=== PATIENT | female | born 1940 | race Caucasian/White ===

== ENCOUNTER 2019-08-29 09:26 | Inpatient (IN) | payer MEDICARE ==
[~2019-08-29] VITALS: Ht 167.6 cm; Wt 59.0 kg
[~2019-08-29 09:26] MED LIST: ALLOPURINOL 10100 M1 PO; ASPIRIN EC81 M1 PO; CALCIUM CARBON600 MG PO; CALCIUM500 MG PO; COLACE100 MG PO; CRESTOR20 MG PO; GLUCOPHAGE500 MG PO; HYDRALAZINE 5050 MG PO; LISINOPRIL20 MG PO; LOPRESSOR100 MG PO; MIRALAX17 GM PO; NORVASC5 MG PO; POTASSIUM CHLO10 ME1 PO; PRAVACHOL40 MG PO; SENNA8.6 MG PO; TOPROL XL25 MG PO
[2019-08-29 11:40] VITALS: BP 152/67
[2019-08-29 12:02] LABS: HEMATOCRIT 31.3 % (37.0-47.0); HEMOGLOBIN 10.7 gm/dL (12.0-15.0); MCH 31.4 pg (26.0-34.0); MCHC 34.2 g/dL (28.0-37.0); MCV 91.9 fL (80.0-100.0); MPV 7.9 fl. (7.2-11.1); RBC 3.41 mil/uL (4.20-5.00); RDW-CV 14.1 % (10.5-14.5); WBC 6.5 thou/uL (4.0-11.0)
[2019-08-29 12:20] LABS: CALCIUM 9.7 mg/dL (8.5-10.1); CREATININE 2.7 mg/dL (0.6-1.3); POTASSIUM 3.7 mmol/L (3.5-5.1)
[2019-08-29 19:30] VITALS: BP 128/50
[2019-08-29 22:00] VITALS: BP 156/60
[2019-08-30] VITALS (14 sets, daily range): BP systolic 103–160; BP diastolic 44–72
--- NOTE | 2019-08-30 10:46 | EKG ---
[place] [address] ELECTROCARDIOGRAM REPORT Name: JOSE A SANDOVAL Room: [address] ADM IN .R.#: [id number] Admission: 08/29/19 Attend Phys: Lam Bailey Discharge: Date of : 42 Date of Service: 08/29/19 1150 Report #: [id number] THIS REPORT FOR: //name// [facility] Test Date: 2019-08-29 Test Time: 11:50:23 Pat Name: JOSE A SANDOVAL Department: Room: [facility] Gender: F Audio/Video Technician: : 1940 Requested By: Surendra Avitia Order Number: [id number] Reading MD: Florian Klein Measurements Intervals [place] Rate: 50 P: 13 IN: 193 QRS: -36 QRSD: 93 T: 179 QT: 505 QTc: 461 Interpretive Statements Sinus bradycardia septal q waves noted Probable left atrial enlargement LVH with secondary repolarization abnormality Compared to ECG 06/10/2011 07:50:57 rate has slowed Electronically Signed On 08-30-2019 10:46:02 CDT by Florian Klein [email or web address] <ELECTRONICALLY SIGNED> By: Florian Klein MD, [facility] 08/30/19 1046 1150 1150 Florian Klein MD, [facility] /EPI
--- NOTE | 2019-09-03 14:07 | PATH ---
[address] [place] [address] PATHOLOGY RPT PROCEDURE Name: MARY SANDOVAL Room: [address] IN [facility]#: [id number] Admission: 08/29/19 Date of : 42 Discharge: 08/30/19 Report #: [id number] Path Case #: [id number] [facility] Accession Number: [id number] . 01 Material submitted: . carotid body - LEFT CAROTID PLAQUE. Modifiers: left . 01 Clinical history: . Left carotid stenosis . 02 Diagnosis: Left carotid plaque: - Fibrointimal atherosclerotic plaque with calcifications. (ISHAN:pit 09/03/2019) QTP 09/03/2019 1034 Local . 02 Electronically signed: . Carroll Moore MD, Pathologist NPI- [id number] . 01 Gross description: . The specimen is received in formalin, labeled "Farwell, Mary, left carotid plaque" and consists of multiple rubbery to calcified segments of yellow-oconnell tissue measuring 4.3 x 0.9 x 0.5 cm which are entirely submitted in A1 following decalcification. (SDY; 09/02/2019) SYU/SYU 09/02/2019 1112 Local . 02 Pathologist provided ICD-10: I65.22 . 02 CPT . 805720, [id number] Specimen Comment: A courtesy copy of this report has been sent to [phone], [phone] Specimen Comment: [phone], Specimen Comment: Report sent to ,DR RIVAS / DR BORGES Performed at: 01 [facility] [address], [place], [place] [id number] MD Valerio Mckeon MD Phone: [phone] Performed at: [address] [facility] [address], [place], [place] [id number] MD Carroll Moore MD Phone: [phone]
--- NOTE | 2019-09-05 16:00 | OP ---
[facility] [address] [place] [address] OPERATIVE REPORT Name: JOSE A SANDOVAL Room: [address] IN [facility]#: [id number] Admission: 08/29/19 Attend Phys: Emir Potter Discharge: 08/30/19 Date of : 42 Report #: [id number] THIS REPORT FOR: //name// cc: Allison Aguilera Melanie A. FNP ~ THIS REPORT FOR: //name// CC: Allison Bailey DATE OF SERVICE: 08/29/2019 PREOPERATIVE DIAGNOSIS: Severe left internal carotid artery stenosis. POSTOPERATIVE DIAGNOSIS: Severe left internal carotid artery stenosis. PROCEDURES: 1. Left carotid endarterectomy with patch angioplasty. 2. Intraoperative ultrasound with interpretation. FINDINGS ON ULTRASOUND: 1. Normal waveform velocity identified in the common and internal carotid arteries. 2. Patent flow identified in the external carotid artery on color flow imaging. 3. No flaps or defects identified within the posterior wall on carvajal scale imaging. SURGEON: Surendra Avitia MD [employer] LABORER: Dr. Guillen, resident year 4. COMPLICATIONS: None. ESTIMATED BLOOD LOSS: 100 mL. SPECIMEN: Includes plaque. INDICATIONS FOR PROCEDURE: The patient is a very pleasant 79-year-old white female who has severe left internal carotid artery stenosis. This is asymptomatic. We plan for left carotid endarterectomy today. Informed consent was obtained from the patient with risks including but not limited to bleeding, infection, need for further surgery, pain, , heart attack, stroke, cranial nerve injury. The patient understands these risks and is agreeable to proceed. DESCRIPTION OF PROCEDURE: The patient was taken to the OR and placed in supine [place] [id number] OPERATIVE REPORT Name: JOSE A SANDOVAL Room: [address]#: [id number] Admission: 08/29/19 Attend Phys: Emir Potter Discharge: 08/30/19 Date of : 42 Report #: [id number] position. General anesthesia was initiated, left neck and chest were prepped and draped in usual sterile fashion. Timeout was performed. I created a transverse incision in the patient's left neck. Sharp and blunt dissections were carried down along the anterior border of the sternocleidomastoid muscle. We divided multiple branches of the facial vein. We entered the carotid sheath. We controlled the common carotid artery as well as the branches of the internal and external carotid artery. I created a longitudinal arteriotomy on the common carotid artery extending onto the internal carotid artery. We placed a 12 shunt without difficulty. I performed endarterectomy in the standard fashion using a [place] elevator and a pair of pickups. I obtained a feathered edge leading into the internal carotid artery. We performed eversion endarterectomy of the external carotid artery. We took our time to remove the bits and pieces of the plaque from posterior wall. I then closed the arteriotomy with a bovine pericardial patch and a running 6-0 Prolene suture. At the completion of the repair, there was adequate hemostasis and excellent blood flow into the internal and external carotid arteries. I performed intraoperative ultrasound with findings noted above. We corrected the heparin with protamine. We controlled bleeding as needed with electrocautery, ties, clips and Kenzie. We closed the wound in multiple layers using 2-0 Vicryl, 3-0 Vicryl and 4-0 Monocryl for the skin. Incision was dressed with Dermabond. The patient was taken alert and awake to recovery room in good condition, neurologically intact. All needle and instrument counts were correct at the end of the case. <ELECTRONICALLY SIGNED> By: Surendra Avitia MD 09/05/19 1600 1542 [id number] Avitia MD /nt
== END 2019-08-30 11:45 | disposition home or self-care (01) | DRG 37 ==
LOC: M.SUR 09:26 → M.TBA 11:27 → M.ICU 11:27 → M.PRE 12:07 → M.SUR 13:26 → EDSTATUS 13:31 → M.TBA 17:09 → M.ICU 17:46
PROVIDERS: Surgery Vascular Surgery; ADMIT Internal Medicine; ATTEND Internal Medicine
PROC: 03CL0ZZ Extirpation of Matter from Left Internal Carotid Artery, Open Approach (ICD-10-PCS; principal; 2019-08-29)
PROC: 05HY33Z Insertion of Infusion Device into Upper Vein, Percutaneous Approach (ICD-10-PCS; principal; 2019-08-29)
PROC: 03UL0KZ Supplement Left Internal Carotid Artery with Nonautologous Tissue Substitute, Open Approach (ICD-10-PCS; principal; 2019-08-29)
DX: I65.22 Occlusion and stenosis of left carotid artery (principal); N18.6 End stage renal disease; I12.0 Hypertensive chronic kidney disease with stage 5 chronic kidney disease or end stage renal disease; K59.09 Other constipation; G89.29 Other chronic pain; M54.9 Dorsalgia, unspecified; F32.9 Major depressive disorder, single episode, unspecified; E11.51 Type 2 diabetes mellitus with diabetic peripheral angiopathy without gangrene; D64.9 Anemia, unspecified; E11.22 Type 2 diabetes mellitus with diabetic chronic kidney disease; R33.9 Retention of urine, unspecified; Z95.1 Presence of aortocoronary bypass graft; Z87.891 Personal history of nicotine dependence